=== PATIENT | male | born 1995 ===

== ENCOUNTER 2017-03-23 20:38 | Emergency (ER) | payer BC ==
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
[2017-03-23] MEDS ORDERED: LORazepam 2 MG/ML MDV IVPUSH ONE (21:17)
[2017-03-23] MEDS ORDERED: LORazepam 1 MG Tab PO ONE (21:30)
[2017-03-23 21:50] LABS: CHLORIDE,CL 108 mmol/L (98-110); SODIUM,NA 140 mmol/L (136-146)
[2017-03-23] MEDS ORDERED: cefTRIAXone 1,000 MG in Lidocaine 1% 4 ML IM ONE (22:02)
--- NOTE | 2017-03-24 19:47 | CR ---
EXAM DATE: 03/23/17 PATIENT'S AGE: 21 Patient: DARRELL MENDOZA Facility: [place], [place] Site . Site : 1995 Study: XRay Extremity Right [id number] 9:50:54 PM Ordering Physician: Doctor Leslie Final Report: HISTORY: Right hand pain. TECHNIQUE: Two views of the right hand. COMPARISON: No prior. FINDINGS: There is an angulated and mildly displaced boxer`s type fracture of the distal 5th metacarpal bone involving the neck of the bone. The osseous structures appear otherwise intact. Joint spaces are maintained. No radiopaque foreign body or soft tissue gas. IMPRESSION: Boxer`s fracture of the distal 5th metacarpal bone of the right hand. Dictated by Anthony Curiel MD @ 03/23/2017 9:56:58 PM Dictated by: Anthony Curiel MD @ 03/23/2017 21:57:14 (Electronic Signature) Report Signed by Proxy. [facility]
== END 2017-03-23 23:02 ==
LOC: MW.ED 20:38
DX: S62.336A Displaced fracture of neck of fifth metacarpal bone, right hand, initial encounter for closed fracture (principal); R45.851 Suicidal ideations; N39.0 Urinary tract infection, site not specified; W22.8XXA Striking against or struck by other objects, initial encounter
CPT/HCPCS: 29125; 36415; 73120; 80053; 80305; 81001; 83735; 84443; 84481; 85025; 93005; 96372; 99285; A9270; G0480; J0696; 99284